=== PATIENT | male | born 1945 | race Caucasian/White ===

== ENCOUNTER 2017-04-15 18:50 | Observation (INO) | payer OTHER ==
[~2017-04-15] VITALS: Ht 172.7 cm; Wt 72.6 kg
--- NOTE | ~2017-04-15 | CO ---
Unit #: [id number] #: [id number] Patient: LAURIE JORDAN [id number] [facility] [address] [facility]. [place], [place] [address] [id number] I MR#: [id number] NAME: LAURIE JORDAN ROOM: 329 Age: 71 Sex: M Admission Date: 04/16/2017 : 1945 Attending Physician: Michele Clifford M.D. Primary Care Physician: Heaven Pastor M.D. Consultation Date: 04/16/2017 CONSULTATION REPORT REASON FOR CONSULTATION Really, I am uncertain, the patient says that he has been getting weak for several days and he is falling, otherwise it says question about TIA. PATIENT IDENTIFICATION This is a 71-year-old, right-handed, white male, who was evaluated in room 329 at [facility]. SOURCE OF INFORMATION Some from the patient and some from the previous records. He was here last as a full admission in 10/2013. PROBLEM LIST 1. As per records, he has Alzheimer disease. 2. Parkinson disease. 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 4. Coronary artery disease. 5. Hyperlipidemia. 6. Chronic lymphedema of the right leg. 7. Osteoporosis and likely osteoarthritis. 8. Question of peripheral vascular disease. He has lymphedema and marked dermatitis diagnosed in the past. 9. Skin and bone cancer. 10. Left leg cyst removed x2. 11. Cyst in the back removed. 12. Tonsillectomy. 13. He is on multiple Parkinson medicine. His CT showed atrophy. HISTORY OF PRESENT ILLNESS This is a 71-year-old gentleman, who actually presented last evening around 1849 to the hospital via EMS. The concern was leg weakness since the evening before and he tells me that it has been going on for some time and he has fallen several times. His BUN was slightly elevated at 27, alkaline phosphatase was 101. His white count was 8.0. Urinalysis really did not show anything. Looking at his records, he is on a lot of Parkinson's medication, but I am not sure who is managing it and what is its control. Falls are not uncommon with patients with Parkinson disease. He is awake. He is alert. He has resting tremor, and I have no records of his Parkinson's management. He denies any double vision. He denies any speech, swallowing, or breathing problems. His tremor is worse on the right side. No signs of meningismus. Nothing suggesting major infection. Unit #: [id number] #: [id number] Patient: LAURIE JORDAN PAST MEDICAL HISTORY As discussed above. PAST SURGICAL HISTORY As discussed above. ALLERGIES Per record, none. HOME MEDICATIONS Per records; Requip 2 mg t.i.d., nitroglycerin patch, atorvastatin 20 mg, Fosamax 70 mg, Isordil 10 mg, Klor-Con, Lasix, low-dose aspirin 81 mg, gabapentin 300 mg t.i.d., ferrous gluconate 324 mg, carbidopa-levodopa 25-250 two each p.o. b.i.d. FAMILY HISTORY Details not known. Apparently, there is hypertension, diabetes, coronary artery disease. SOCIAL HISTORY He says he is . He told me he lives in [place]. I really do not see that on the records. There is no tobacco, alcohol, or drug use known to me. He previously worked at [employer] according to the records. REVIEW OF SYSTEMS CONSTITUTIONAL: Generalized weakness and falls. He denies any speech issues, fever, chills, rigor, or sweats. HEENT: He denies any headaches, double vision, earache, runny nose, sore throat. CARDIOVASCULAR: No chest pain, clubbing, cyanosis, orthopnea, or palpitation. PULMONARY: No shortness of air, cough, or expectoration. GI: No nausea, vomiting, diarrhea, or constipation. : No genitourinary symptoms. EXTREMITIES: No extremity problems other than the tremors. BACK: No back problem. PSYCHIATRIC: Psychotic issue questionable. NEUROLOGIC: Issue as discussed. No other hematologic, dermatologic, or endocrine problem known to me. PHYSICAL EXAMINATION VITAL SIGNS: Temperature 97.4, pulse 57, respirations 18, blood pressure 134/97, O2 saturations were 95% to 98%. Weight of 160 pounds, considering his weight in the past from 2008 to today, it has been everywhere and in 2013, it was 155. NEUROLOGIC: He is awake. He knows he is in [facility]. He knows this is March and he told me this is a few days before his birthday on the . He does not know the year or the day of the week. He can name and he can follow commands. No right or left confusion. No finger agnosia. Cranial examination demonstrates full perla of vision to confrontation. Eye movements are conjugate. I did not see any ptosis. I did not see any nystagmus. Extraocular movements are intact. Sensation on the face and scalp are present. Hearing seemed to be intact. Tongue was midline. I Unit #: [id number] #: [id number] Patient: LAURIE JORDAN could not visualize his oropharynx or uvula. Head turning was spontaneous. Motor exam showed significant increased tone, almost spastic all over, especially the left side and he has significant resting tremor on the right side. Strength otherwise is at least 4+ to 5-. Sensory examination intact for soft touch and pain sensation. No extinction was seen. Romberg was not evaluated. Gait examination was deferred. I could not get any reflexes. Toes are mute. Coordination, he has significant tremor, still he was able to do [id number]. DIAGNOSTIC STUDIES LABORATORY RESULTS: Reviewed and I really do not see anything major. IMPRESSION Looks like he is here for falls. I am not seeing anything focal right now. It does look like he has Parkinson disease. The issue is who is managing it, what medication is he tried, what is he failed. He is on high-dose Requip and he is on very high dose of Sinemet, but in a strange configuration, so I am going to try to wait for his daughter. I am going to try to call her, there is a number and I am going to see if we need to do adjustment of his medication. Otherwise, there is nothing suggesting transient ischemic attack, but again the history and physical is not available and I have no other information and he is cognitively not the best, but will follow up and see how things go. I will keep you informed. Call me for any other questions, issues, or concerns and further treatment will be based on findings and history. Dictated by... Jeremiah Campos/hilario TD: 04/17/2017 05:03 JOB #: [id number] CONSULTATION REPORT Page 1 of 1 X Janis Marvin MD CONSULTATION REPORT
--- NOTE | ~2017-04-15 | HP ---
Unit #: [id number] #: [id number] Patient: LAURIE WALKER [id number] [address] [address] [id number] I MR#: [id number] NAME: LAURIE WALKER ROOM: 329 Age: 71 Sex: M Admission Date: 04/16/2017 : 1945 Attending Physician: Michele Clifford M.D. Primary Care Physician: Heaven Pastor M.D. HISTORY AND PHYSICAL HISTORY OF PRESENT ILLNESS Mr. Walker is a 71-year-old white male who was admitted through the emergency room because of leg weakness that began last evening. He fell at home and was brought in. He said he could not stand up. He currently uses a walker. He denied any pain there. He denied any fever, chills, sweats, cough, or purulent sputum. He had no headache and no seizures. He thinks he may have lost consciousness, he is not sure. He had no loss of bowel function during the event. PAST MEDICAL HISTORY 1. Parkinson disease. 2. Alzheimer dementia. 3. Coronary artery disease. 4. Hyperlipidemia. 5. Chronic lymphadenopathy of the right leg. 6. Osteoporosis. PAST SURGICAL HISTORY Surgery on pilonidal cyst and varicose vein stripping. ALLERGIES No known allergies. HOME MEDICATIONS 1. Requip. 2. Nitroglycerin patch. 3. Atorvastatin. 4. Fosamax. 5. Isordil. 6. Potassium. 7. Lasix. 8. Low-dose aspirin. 9. Gabapentin. 10. Ferrous gluconate. 11. Carbidopa and levodopa. FAMILY HISTORY Diabetes, hypertension, and coronary artery disease. SOCIAL HISTORY Lives with . Currently no smoking and no alcohol. He previously worked at [employer]. REVIEW OF SYSTEMS Unit #: [id number] #: [id number] Patient: LAURIE WALKER Please see History of Present Illness. Denies nausea, vomiting, diarrhea, hematuria, and dysuria. No skin rash. PHYSICAL EXAMINATION GENERAL: A white male in no distress laying in bed. VITAL SIGNS: Blood pressure 144/83, pulse 78, respiratory rate 18, and temperature 99.4. HEENT: Normocephalic and atraumatic. Pupils equal, round, and reactive. Sclerae are nonicteric. Nasal passages patent. Posterior pharynx clear. Mucous membranes moist. He is edentulous. NECK: Supple. Trachea midline. No bruits. LUNGS: Clear. CARDIAC: Regular rate and rhythm. I could not appreciate a murmur, rub, or gallop. ABDOMEN: Nontender. Bowel sounds present. No hepatosplenomegaly. EXTREMITIES: With stasis changes bilaterally. No edema. NEUROLOGIC: Obvious tremors consistent with Parkinson. There is cogwheeling of his upper extremity. Awake. He does move all extremities. DIAGNOSTIC STUDIES LABORATORY: Personally reviewed. BMP reviewed and unremarkable. Coags normal. White blood cell count 8000, hematocrit 39.1, and platelet count normal. IMAGING: Chest x-ray with no acute infiltrate. CT scan of the head with no acute abnormality. IMPRESSION 1. Possible syncope, possible cerebrovascular accident or transient ischemic attack. 2. Parkinson. 3. Dementia. 4. Other problems as mentioned above. PLAN Neurology consult. MRI head. Continue current medications. Further recommendations pending this. Dictated by Jeremiah Evans/abran TD: 04/16/2017 17:23 JOB #: [id number] HISTORY AND PHYSICAL Page 1 of 1 X Carter Salcedo MD X HISTORY AND PHYSICAL
--- NOTE | ~2017-04-15 | CR72 ---
[facility] A Service of [facility] & [facility] RADIOLOGY TEXT RESULTS PATIENT: LAURIE JORDAN LOCATION: [facility] 329-01 : 43 UNIT #: [id number] AGE: [address]: Michele Clifford MD SEX: M ORDER DR: [id number] [facility] [address] [facility]. [place], [place] [address] [id number] I MR#: [id number] Acc #: [id number] NAME: LAURIE JORDAN : 1945 SEX: M STUDY DATE/TIME: 04/15/2017 20:45 UNIT: A U ROOM: [facility] STUDY DESCRIPTION: CR Chest Single View Portable Attending Physician: Michele Clifford M.D. Ordering Physician: Gaurang Oliveros D.O. Primary Care Physician: Heaven Pastor M.D. MEDICAL IMAGING REPORT This report is preliminary unless electronic signature is present EXAM Portable chest 04/15/2017 HISTORY 71-year-old male with weakness and shortness of air for 4 days. COMPARISON Chest 03/17/2009. FINDINGS Frontal chest demonstrates clear lungs. No pleural effusion or pneumothorax. Heart size mildly enlarged. Mediastinum and pulmonary vasculature unremarkable. IMPRESSION Stable mild cardiomegaly. No other acute chest findings. Dictated by... Kevin Evans M.D. THIS IS AN ELECTRONICALLY VERIFIED REPORT Kevin Evans M.D. at 04/16/2017 2:42 PM ARTEMIO/patience TD: 04/16/2017 08:22 JOB #: [id number] MEDICAL IMAGING REPORT Page 1 of 1 COPY
--- NOTE | ~2017-04-15 | DS ---
Unit #: [id number] #: [id number] Patient: LAURIE JORDAN [id number] [address] [address] [id number] I MR#: [id number] NAME: LAURIE JORDAN ROOM: 329 Age: 72 Sex: M Admission Date: 04/16/2017 : 1945 Discharge Date: 04/18/2017 Attending Physician: Michele Clifford M.D. Primary Care Physician: Heaven Pastor M.D. DISCHARGE SUMMARY DISCHARGE DIAGNOSES 1. Weakness. 2. Severe Parkinson's. 3. Dementia. 4. Coronary artery disease. 5. Hyperlipidemia. 6. Chronic lymphedema, right leg. 7. Osteoporosis. 8. 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 DISCHARGE MEDICATIONS Neurontin 300 mg t.i.d., Requip 2 mg p.o. t.i.d., Lasix 20 mg p.o. daily, atorvastatin 20 mg daily, ferrous sulfate 324 mg b.i.d., Fosamax 70 mg as indicated, aspirin 81 mg daily, potassium chloride 20 mEq daily, Isordil 10 mg b.i.d., nitroglycerin patch q.12 hours in a.m., Sinemet 25/100 one p.o. q.i.d. and Sinemet CR 50/200 one p.o. q.12 hours, note change in Sinemet dosing per Dr. Marvin. HOSPITAL COURSE The patient was admitted for weakness and falls. On admission, there was some concern that he could have had a TIA. Head CT showed no acute abnormality. He was seen by Dr. Marvin and noted his Parkinson's was quite active. His medications were adjusted with significant improvement in tremor and cogwheeling. MRI was ordered, but could not be done due to the patient's kyphosis. A CT angio of the head and neck were done, which revealed the 5 mm cerebral aneurysm mentioned above. There was mild plaquing at the carotid bifurcation. The right vertebral artery was dominant and patent throughout supplying the basilar. Left vertebral artery was smaller and there was probably at least a moderate short segment stenosis at its origin. There was no intracranial vascular cutoff or focal central stenosis. It was not felt that he had a stroke. He improved with adjustment of his Sinemet and will be discharged home with home health, PT, and OT. This has been discussed with his in detail. He does have the above-noted aneurysm and should follow up with Dr. Henriquez/Sissy and CHERRY Fuentes and be referred to Neurosurgery for evaluation. Dr. Marvin did not feel surgical intervention was required at this point. Dictated by... Carter Salcedo M.D. Unit #: [id number] #: [id number] Patient: LAURIE JORDAN MARVEL/hilario TD: 04/21/2017 01:30 JOB #: [id number] DISCHARGE SUMMARY Page 1 of 1 X Carter Salcedo MD X DISCHARGE SUMMARY
--- NOTE | ~2017-04-15 | CT17 ---
[facility] A Service of [facility] & [facility] RADIOLOGY TEXT RESULTS PATIENT: LAURIE JORDAN LOCATION: [facility] 329-01 : 43 UNIT #: [id number] AGE: [address]: Michele Clifford MD SEX: M ORDER DR: [id number] [facility] [address] [place], [place] [address] [id number] I MR#: [id number] Acc #: [id number] NAME: LAURIE JORDAN : 1945 SEX: M STUDY DATE/TIME: 04/17/2017 20:18 UNIT: C3A U ROOM: [facility] STUDY DESCRIPTION: CT Angio Head Attending Physician: Michele Clifford M.D. Ordering Physician: Janis Marvin M.D. Primary Care Physician: Heaven Pastor M.D. MEDICAL IMAGING REPORT This report is preliminary unless electronic signature is present EXAM CT angiogram head and neck HISTORY 71-year-old male with presentation with weakness and confusion since 04/14/2017. History of hypertension. History of cancer not otherwise specified by the patient. COMPARISON Head CT from 04/15/2017. COMMENT CT angiography performed axial plane during the intravenous administration of 100 mL of Isovue 370. This was followed by multiple reconstructed and reformatted images for the purpose of 3-D CT angiography of the head and neck vessels. The preliminary wet reading was provided by Dr. Evans. This CT examination was performed with one or more of the following radiation dose reduction techniques: automatic exposure control, adjustment of mA and/or kV according to patient size, and iterative reconstruction. CT ANGIOGRAM NECK: Partly seen are atherosclerotic vascular calcifications involving coronary arteries. There are also vascular calcifications in the arch and there is involvement of the origin of the left subclavian with likely mild stenosis. Probably also some mild calcified plaque origin of the right subclavian. Evaluation of the right carotid system shows mild calcified plaque but essentially 0% stenosis by NASCET criteria at the right carotid bifurcation. The right carotid siphon shows mild calcified plaque with only mild narrowing. Evaluation of the left carotid system shows mild noncalcified plaque at the bifurcation, minimally calcified plaque in the siphon. By NASCET criteria, there is essentially 0% stenosis at the [facility] A Service of [facility] & [facility] RADIOLOGY TEXT RESULTS PATIENT: LAURIE JORDAN [id number] 43 UNIT #: [id number] AGE: [address]: Michele Clifford MD SEX: M ORDER DR: bifurcation and only mild narrowing in the siphon. The left vertebral artery is probably moderately narrowed at its origin. This does appear to be hemodynamically significant. The vessel is otherwise patent in the neck and contributes to basilar supply. It is smaller intracranially after the PICA origin. The right vertebral artery is the dominant vessel, patent in the neck and supplying the basilar. Evaluation of the intracranial circulation shows no intracranial vascular cutoff. There is an aneurysm of the supraclinoid ICA on the right side directed inferiorly measuring about 5 mm in diameter and length. It is saccular and should be further evaluated for possible intervention. Suggest neurosurgical consultation to determine management options. It is best characterized further with a conventional angiogram. Some fullness is noted at the anterior communicator but no discrete saccular aneurysm is seen. Both vertebral arteries supply the basilar with the right being dominant. The left A1 vessel is mildly smaller than the right. No focal central stenosis is appreciated. The dural venous sinuses are grossly patent. IMPRESSION 1. There is an aneurysm of the supraclinoid right ICA directed predominantly inferiorly and measuring about 5 mm in diameter and 5 mm in length. It is saccular and given its size it should be further evaluated by neurosurgery to determine management options. 2. By NASCET criteria, there is no hemodynamically significant narrowing at either carotid bifurcation. There is mild plaque. 3. The right vertebral artery is dominant and patent throughout supplying the basilar. The left vertebral artery is smaller and there is probably at least moderate short segment stenosis at its origin. 4. There is no intracranial vascular cutoff or focal central stenosis. See above. ADDENDUM: Efforts to call Dr. Marvin underway. I spoke to Dr. Lacy within the half hour. STAT * RESULT Dictated by... Karol Samuel M.D. THIS IS AN ELECTRONICALLY VERIFIED REPORT Karol Samuel M.D. at 04/18/2017 9:32 AM YULI/paitence [facility]. [facility] A Service of [facility] & [facility] RADIOLOGY TEXT RESULTS PATIENT: LAURIE JORDAN LOCATION: [facility] : 43 UNIT #: [id number] AGE: [address]: Michele Clifford MD SEX: M ORDER DR: TD: 04/18/2017 08:34 JOB #: [id number] MEDICAL IMAGING REPORT Page 1 of 1 COPY
--- NOTE | ~2017-04-15 | CT23 ---
[facility] A Service of [facility] & [facility] RADIOLOGY TEXT RESULTS PATIENT: LAURIE JORDAN LOCATION: [facility] 329-01 : 43 UNIT #: [id number] AGE: [address]: Michele Clifford MD SEX: M ORDER DR: [id number] [facility] [address] [facility]. [place], [place] [address] [id number] I MR#: [id number] Acc #: [id number] NAME: LAURIE JORDAN : 1945 SEX: M STUDY DATE/TIME: 04/17/2017 20:18 UNIT: [address] ROOM: [facility] STUDY DESCRIPTION: CT Angio Neck Attending Physician: Michele Clifford M.D. Ordering Physician: Janis Marvin M.D. Primary Care Physician: Heaven Pastor M.D. MEDICAL IMAGING REPORT This report is preliminary unless electronic signature is present EXAM CT angiogram of the neck FINDINGS Please see CT angiogram of the head for results. STAT * RESULT Dictated by... Karol Samuel M.D. THIS IS AN ELECTRONICALLY VERIFIED REPORT Karol Samuel M.D. at 04/18/2017 9:31 AM YULI/patience TD: 04/18/2017 08:30 JOB #: [id number] MEDICAL IMAGING REPORT Page 1 of 1 COPY
--- NOTE | ~2017-04-15 | EKG ---
PATIENT: LAURIE JORDAN UNIT #: [id number] Ventricular Rate: 62 BPM Atrial Rate: 62 BPM QRS Duration: 72 ms Q-T Interval: 392 ms QTC Calculation(Bezet): 397 ms Calculated R Gall[place]: 57 degrees Calculated T [place]: 66 degrees Diagnosis Line: Normal sinus rhythm Diagnosis Line: Abnormal ECG Diagnosis Line: No previous ECGs available Diagnosis Line: Confirmed by SHERRELL HANLEY MD ([id number]) on Diagnosis Line: 04/16/2017 8:31:40 AM INTERPRETING MD: TALON OSWALD
--- NOTE | ~2017-04-15 | CT71 ---
[facility] A Service of [facility] RADIOLOGY TEXT RESULTS PATIENT: LAURIE JORDAN LOCATION: [facility] 329- : 43 UNIT #: [id number] AGE: [address]: Michele Clifford MD SEX: M ORDER DR: [id number] [place] [address] [facility]. [place], [place] [address] [id number] I MR#: [id number] Acc #: [id number] NAME: LAURIE JORDAN : 1945 SEX: M STUDY DATE/TIME: 04/15/2017 21:26 UNIT: A PCU ROOM: [facility] STUDY DESCRIPTION: CT Head Wo Contrast Attending Physician: Michele Clifford M.D. Ordering Physician: Gaurang Oliveros D.O. Primary Care Physician: Heaven Pastor M.D. MEDICAL IMAGING REPORT This report is preliminary unless electronic signature is present EXAM CT head without contrast, 04/15/2017 HISTORY 71-year-old male with weakness and confusion beginning yesterday. Dizziness. COMPARISON CT head, 11/06/2009 TECHNIQUE Routine unenhanced axial images performed through the brain. This CT exam was performed with one or more of the following radiation dose reduction techniques: automatic exposure control, adjustment of mA and/or kV according to patient size, and iterative reconstruction. FINDINGS No hemorrhage, acute infarction, mass lesion, or abnormal extraaxial fluid collection. No midline shift or focal mass effect. Ventricular system is normal in size and configuration. Mild generalized atrophy. Mild chronic small vessel disease. No acute bony abnormality. Visualized paranasal sinuses and mastoid air cells are clear. IMPRESSION 1. No acute intracranial abnormality. 2. Mild age-related atrophy and chronic small vessel disease. Dictated by... Kevin Evans M.D. THIS IS AN ELECTRONICALLY VERIFIED REPORT Kevin Evans M.D. at 04/16/2017 2:43 PM [facility] A Service of [facility] RADIOLOGY TEXT RESULTS PATIENT: JULIAN,LAURIE LOCATION: [facility] 329-01 : 41 UNIT #: [id number] AGE: [address]: Michele Clifford MD SEX: M ORDER DR: ARTEMIO/sam TD: 04/16/2017 08:30 JOB #: [id number] MEDICAL IMAGING REPORT Page 1 of 1 COPY
[~2017-04-15 18:50] MED LIST: ALEVE220 M1 PO; ATORVASTATIN CA10 MG PO; ATRAC-TAIN TOP; AUGMENTIN PO; BACTRIM DS TABL1 TA2 PO; BACTROBAN15 GM TOP; CENTRUM SILVER PO; CLOBETASOL 0.0560 GM TOP; COUMADIN PO; DAKIN'S3840 ML TOP; FOSAMAX70 MG PO; HYDROCODON-ACE1 EACH PO; ISORDIL PO; ISORDIL10 MG PO; KCL PO; LASIX PO; LASIX20 MG PO; LOTRIMIN30 GM TOP; LOW DOSE ASPIRI81 M1 PO; NORCO 5/325 TAB1 TAB PO; REQUIP1 MG PO; REQUIP3 MG PO; SANTYL TOP; SANTYL15 G1 TP; VIBRAMYCIN100 M1 PO; [UNRECOGNIZED DRUG - OTHER] TD
[2017-04-15 20:58] LABS: POC - CKMB 1.5 ng/mL (0.0-7.9); POC - TROPONIN <0.05 ng/mL (<=0.05)
[2017-04-15 20:59] LABS: BASOPHIL% 0.2 % (0-2.5); EOSINOPHIL# 0.3 X10e3 (0-0.7); EOSINOPHIL% 3.6 % (0.0-7.0); HEMATOCRIT 39.1 % (38.0-50.0); HEMOGLOBIN 12.8 gm/dL (13.0-16.0); LYMPHOCYTE# 0.8 X10e3 (1.0-3.5); LYMPHOCYTE% 9.6 % (17.0-45.0); MEAN CELL VOLUME 95.8 FL (83-96); MEAN CORPUSCULAR HEMOGLOBIN 31.3 PG (28-34); MEAN CORPUSCULAR HGB CONC 32.7 g/dL (30-36); MONOCYTE# 0.6 X10e3 (0-1.0); MONOCYTE% 7.6 % (3.0-12.0); NEUTROPHIL# 6.3 X10e3 (1.5-7.1); PLATELET COUNT 204 X10e3 (140-420); RED BLOOD COUNT 4.08 X10e (3.90-5.60); RED CELL DISTRIBUTION WIDTH 14.4 % (11.0-15.5)
[2017-04-15 21:02] LABS: DIFF IND NO
[2017-04-15 21:19] LABS: URINE SOURCE CLEAN CATCH
[2017-04-15 21:20] LABS: INR 1.1; PARTIAL THROMBOPLASTIN TIME 25.9 SECONDS (23.5-31.3); PROTHROMBIN TIME (PATIENT) 11.9 SECONDS (10.0-11.7)
[2017-04-15 21:24] LABS: URINE APPEARANCE CLEAR; URINE BILIRUBIN NEG (NEG); URINE BLOOD NEG (NEG); URINE COLOR YELLOW; URINE GLUCOSE NEG (NEG); URINE KETONE TRACE (NEG); URINE LEUKOCYTE ESTERASE NEG (NEG); URINE NITRATE NEG (NEG); URINE PROTEIN NEG (NEG); URINE SPECIFIC GRAVITY 1.021 (1.003-1.035)
[2017-04-15 21:29] LABS: ALBUMIN SERUM 4.2 g/dL (3.5-5.0); BILIRUBIN, DIRECT 0.1 mg/dL (0.0-0.2); BILIRUBIN,INDIRECT 0.5 mg/dL (0.0-0.9); BILIRUBIN,TOTAL 0.6 mg/dL (0.2-2.0); CALCIUM SERUM 9.2 mg/dL (8.4-10.2); GLOM FILT RATE Estimated 74.3 mL/min (>60); POTASSIUM 4.1 mmol/L (3.5-5.1); PROTEIN TOTAL SERUM 7.6 g/dL (6.0-8.3)
[2017-04-15 21:36] LABS: CULTURE INDICATED? NO
[2017-04-15 22:55] LABS: POC - CKMB 1.1 ng/mL (0.0-7.9); POC - TROPONIN <0.05 ng/mL (<=0.05)
[2017-04-16] MEDS ORDERED: GABAPENTIN300 M2 PO (09:55)
[2017-04-16] MEDS ORDERED: FERROUS GLUCON324 M1 PO (09:56)
[2017-04-16] MEDS ORDERED: CARBIDOPA-LEVO1 EAC7 PO (09:57)
[2017-04-16 16:08] LABS: FOLATE (FOLIC ACID) >23.2 ng/mL (>5.8)
[2017-04-16 16:36] LABS: CHOLESTEROL 99 mg/dL (0-200); HDL CHOLESTEROL 32 mg/dL (29-75); LDL CHOLESTEROL 56 mg/dL (-130); LDL/HDL RATIO 2 RATIO (0-4); TRIGLYCERIDES 53 mg/dL (10-160)
== END 2017-04-18 16:46 | disposition home or self-care (01) ==
LOC: CED 18:50 → CEDOF 04-16 00:50 → C3A PCU 04-16 00:50 → CEDOF 04-16 01:07 → CED 04-16 01:07 → C3A PCU 04-16 02:08 → CEDOF 04-16 02:08 → C3A PCU 04-16 02:08
PROVIDERS: Emergency Medicine; Psychiatry & Neurology Neurology
DX: I67.1 Cerebral aneurysm, nonruptured (principal); R53.1 Weakness; G20 Parkinson's disease; G30.9 Alzheimer's disease, unspecified; F02.80 Dementia in other diseases classified elsewhere, unspecified severity, without behavioral disturbance, psychotic disturbance, mood disturbance, and anxiety; M40.209 Unspecified kyphosis, site unspecified; I25.10 Atherosclerotic heart disease of native coronary artery without angina pectoris; M81.0 Age-related osteoporosis without current pathological fracture; Z79.899 Other long term (current) drug therapy; I89.0 Lymphedema, not elsewhere classified
CPT/HCPCS: 36415; 70450; 70496; 70498; 71010; 80048; 80061; 80076; 81003; 82553; 82607; 82746; 83036; 83735; 83880; 84132; 84484; 85025; 85379; 85610; 85730; 92526; 92610; 93005; 94760; 97110; 97116; 97163; 97167; 97535; 99285; G0378; G8978-GP; G8979-GP; G8987-GO; G8988-GO; G8996-GN; G8997-GN; G8998-GN; Q9967